=== PATIENT | male | born 1955 | race Caucasian/White ===

== ENCOUNTER 2022-06-27 05:29 | Day surgery (SDC) | payer MEDICARE, OTHER ==
[2022-06-27] VITALS (16 sets, daily range): BP systolic 128–151; BP diastolic 84–97
[~2022-06-27] VITALS: Ht 181.6 cm; Wt 105.7 kg
[~2022-06-27 05:29] MED LIST: ATOR20TA66 PO; BACL20TA PO; CLON0.1T2 PO; DULO60CA65 PO; IRBE300T18 PO; LORA-269 PO; METF-1203 PO; MIRT-87 PO; PRAM0.129 PO; PREG100C55 PO; ringers solution, lacted 1,000 ML IV SCH
[2022-06-27] MEDS ORDERED: oxymetazoline 15 ML nasal spray NS PRN (05:30)
[2022-06-27] MEDS ORDERED: famotidine 20mg tablet PO ONE (05:30)
[2022-06-27] MEDS ORDERED: diazepam 5mg tablet PO ONE (05:30)
[2022-06-27] MEDS ORDERED: mupirocin 2% ointment 22GM ONE (06:47)
[2022-06-27] MEDS ORDERED: cocaine 4% topical solution 4ml bottle ONE (06:47)
[2022-06-27] MEDS ORDERED: oxymetazoline 15 ML nasal spray NS ONE (06:47)
[2022-06-27] MEDS ORDERED: LIDOCAINE 1%/EPI 1:100,000 inj. 10 ML multi-dose vial ONE (06:47)
[2022-06-27] MEDS ORDERED: fentaNYL/PF 50MCG/1 ML 2ML syringe ONE (07:06)
[2022-06-27] MEDS ORDERED: midazolam 1 mg/ML 2ml injection ONE (07:07)
[2022-06-27] MEDS ORDERED: LIDOcaine 2% (20mg/ml) 5ml vial ONE (07:09)
[2022-06-27] MEDS ORDERED: hydrALAZINE 20mg/ml inj. IV PRN (07:15)
[2022-06-27] MEDS ORDERED: ringers solution, lacted 1,000 ML IV SCH (07:15)
[2022-06-27] MEDS ORDERED: fentaNYL/PF 50MCG/1 ML 2ML syringe IV PRN (07:15)
[2022-06-27] MEDS ORDERED: morphine 2 MG/ML inj. syringe IV PRN (07:15)
[2022-06-27] MEDS ORDERED: morphine 4 MG/ML inj SYRINge IV PRN (07:15)
[2022-06-27] MEDS ORDERED: ondansetron/PF 4mg/2ml inj IV PRN (07:15)
[2022-06-27] MEDS ORDERED: labetalol 20mg/4ml (5mg/ml) syringe IV PRN (07:15)
[2022-06-27] MEDS ORDERED: ondansetron/PF 4mg/2ml inj ONE (08:25)
[2022-06-27] MEDS ORDERED: rocuronium 10mg/ml inj IV ONE (08:25)
[2022-06-27] MEDS ORDERED: labetalol 20mg/4ml (5mg/ml) syringe IV ONE ×2 (08:25→08:35)
[2022-06-27] MEDS ORDERED: propofol inj 20 ML IV ONE (08:25)
[2022-06-27] MEDS ORDERED: neostigmine methylsulfate 1 MG/ML 10ml vial ONE (08:44)
[2022-06-27] MEDS ORDERED: glycopyrrolate 0.2mg/ml inj ONE (08:44)
[2022-06-27] MEDS: fentaNYL/PF 50MCG/1 ML 2ML syringe IV PRN ×2 (10:27→11:13)
--- NOTE | 2022-06-27 10:35 | NUR ---
COTTONOIDS REMOVED FROM NARES ORDERED. PT TOLERATED WILL. GAUZE WITH NASAL DRSG JAY NOW IN PLACE. SCANT DRAINAGE NOTED TO GAUZE. PT DENIES HAVING AN DRAINAGE TO BACK OF THROAT. WILL CONTINUE TO ASSESS.
[2022-06-27] MEDS ORDERED: salt irrigation nasal spray 45 ML SPRAY NS PRN (11:10)
--- NOTE | 2022-06-27 11:59 | NUR ---
Received from OR via [facility], accompanied by Anesthesiologist DR GRACIA and report given by Anesthesiolgist. PT IS GROGGY BUT RESPONDS EASILY TO VERBAL STIMULI AND ANSWERS QUESTIONS APPROPRIATELY, ARCHER. PT PLACED ON BEDSIDE MONITOR, VSS. PT RECEIVING 8L O2 TO MASK ANS TOLERATING WELL WITH O2 SAT >96%. WILL TITRATE DOWN TOLERATES. PT HAS 20G PIV TO RT HAND WITH LR INFUSING ORDERED. PT HAS DRSG TO BRIDGE OF NOSE THAT IS CDI. PT HAS COTTONOIDS TO BILAT NOSTRILS THAT WILL BE REMOVED ORDERED. PT DENIES PAIN AT THIS TIME. WILL CONTINUE TO ASSESS.
--- NOTE | 2022-06-27 12:54 | NUR ---
ALL DISCHARGE CRITERIA HAS BEEN MET. VSS, PAIN AT A TOLERABLE LEVEL, VOIDING AND ABLE TO SAFELY AMBULATE AND TRANSFER SELF. IV TAKEN OUT WITHOUT ANY COMPLICATIONS. ALL DISCHARGE INSTRUCTIONS COVERED WITH PATIENT AND ALL QUESTIONS ANSWERED. PATIENT TAKEN OUT VIA WHEELCHAIR TO PERSONAL VEHICLE WHERE DROVE PATIENT HOME.
== END 2022-06-27 12:32 | disposition home or self-care (01) ==
LOC: PAS 05:29
PROVIDERS: ATTEND Otolaryngology
DX: J34.3 Hypertrophy of nasal turbinates (principal); J34.2 Deviated nasal septum; J34.89 Other specified disorders of nose and nasal sinuses; J98.8 Other specified respiratory disorders; Z79.899 Other long term (current) drug therapy; Z98.890 Other specified postprocedural states; Z79.01 Long term (current) use of anticoagulants; Z20.822 Contact with and (suspected) exposure to COVID-19
CPT/HCPCS: 30140; 30420; 82948; 87635; 87811; 93005; A6402; C9250; C9803; J2250; J2270; J2405; J2704; J2710; J3010; J3490; J7030; J7120; Z7506; Z7508; Z7512; A4618; A6449; A7000

== ENCOUNTER 2024-10-31 07:16 | Day surgery (SDC) | payer OTHER, MEDICARE ==
[2024-10-27 15:16] LABS: BILIRUBIN,URINE NEGATIVE (Neg); CLARITY,URINE CLEAR (Clear); COLOR,URINE YELLOW (Yellow); GLUCOSE, URINE NEGATIVE (Neg); KETONES,URINE NEGATIVE (Neg); LEUKOCYTE ESTERASE ,URINE NEGATIVE (Neg); NITRITES, URINE NEGATIVE (Neg); OCCULT BLOOD,URINE NEGATIVE (Neg); PROTEIN,URINE TRACE mg/dl (Neg); UROBILINOGEN,URINE 0.2 E.U/dL (0.2-1.0)
[2024-10-27 15:18] LABS: UA COLLECTION TYPE CLN CATCH MIDSTREAM
[2024-10-27 15:18] LABS: BASOPHILS % (AUTO) 0.2 % (0-1); EOSINOPHILS # (AUTO) 0.1 X10'3 (0-0.9); EOSINOPHILS % (AUTO) 1.5 % (0-6); LYMPHOCYTES # (AUTO) 1.4 X10'3 (1.1-4.8); LYMPHOCYTES % (AUTO) 19.6 % (21-51); MEAN CORPUSCULAR HEMOGLOBIN 33.9 PG (27.0-31.0); MEAN CORPUSCULAR HGB CONC 34.1 g/dL (33.0-36.5); MEAN CORPUSCULAR VOLUME 99.5 FL (78-98); MEAN PLATELET VOLUME 7.9 FL (7.4-10.4); MONOCYTES # (AUTO) 0.5 X10'3 (0-0.9); MONOCYTES % (AUTO) 6.5 % (2-12); NEUTROPHILS # (AUTO) 5.1 X10'3 (1.8-7.7); NEUTROPHILS % (AUTO) 72.2 % (42-75); PRE OP HEMATOCRIT 40.5 % (42.0-52.0); PRE OP HEMOGLOBIN 13.8 g/dL (14.0-17.9); PRE OP PLATELET COUNT 203 X10'3 (140-440); PRE OP WHITE BLOOD COUNT 7.1 10'3 (4.8-10.8); RED BLOOD COUNT 4.07 X10'6 (4.70-6.10); RED CELL DISTRIBUTION WIDTH 13.1 % (11.5-14.5)
[2024-10-27 15:30] LABS: ALBUMIN 3.5 G/DL (3.4-5.0); ALBUMIN/GLOBULIN RATIO 0.9 (1.1-1.5); ALKALINE PHOSPHATASE 90 IU/L (46-116); BLOOD UREA NITROGEN 10 MG/DL (7-18); BUN/CREATININE RATIO 11.6 (10.0-20.0); CHLORIDE 106 MMOL/L (99-107); CREATININE 0.86 MG/DL (0.60-1.10); PRE OP ANION GAP 7 (8-16); PRE OP AST 40 U/L (10-37); PRE OP BILIRUB, TOTAL 0.4 MG/DL (0.0-1.0); PRE OP GLUCOSE 88 MG/DL (70-104); PRE OP POTASSIUM 4.5 MMOL/L (3.4-5.1); PRE OP SODIUM 141 MMOL/L (135-145); TOTAL PROTEIN 7.6 G/DL (6.4-8.2); eGFR 89 ML/MIN
[2024-10-27 15:33] LABS: PRE OP ALT 104 U/L (30-65)
[2024-10-27 15:36] LABS: BACTERIA,URINE FEW /HPF (Neg); SQUAMOUS EPITHELIAL CELL,UR FEW /LPF (FEW); TRANSITIONAL EPI CELLS,URINE FEW /HPF; WBC,URINE 0-4 /HPF (0-4)
[~2024-10-31] VITALS: Ht 182.9 cm; Wt 103.4 kg
[2024-10-31] VITALS (14 sets, daily range): BP systolic 125–148; BP diastolic 70–112; PULSE 81–98; RESP 11–25; TEMP 96.3; O2SAT 89–98
[~2024-10-31 07:16] MED LIST changes: +BUPIVAcaine 2.5mg/ml inj 50ml vial (contains preservative) ONE; +DICL75TA6 PO; -DULO60CA65 PO; -IRBE300T18 PO; +IRBE300T26 PO; -LORA-269 PO; +MAGN400T39 PO; -METF-1203 PO; +METF-438 PO; -MIRT-87 PO; +MIRT45TA83 PO; -PREG100C55 PO; +PREG100C56 PO; +VENL50TA4 PO; +bacitracin 15gm ointment TP ONE
[2024-10-31] MEDS: ceFAZolin 2gm in dextrose, iso 50 ML IV ONE (07:53)
[2024-10-31] MEDS: famotidine 20mg tablet PO ONE (08:10)
[2024-10-31] MEDS ORDERED: ondansetron/PF 4mg/2ml inj IV PRN (09:45)
[2024-10-31] MEDS ORDERED: morphine 4 MG/ML inj SYRINge IV PRN (09:45)
[2024-10-31] MEDS ORDERED: labetalol 20mg/4ml (5mg/ml) syringe IV PRN (09:45)
[2024-10-31] MEDS ORDERED: morphine 2 MG/ML inj. syringe IV PRN (09:45)
[2024-10-31] MEDS ORDERED: ringers solution, lacted 1,000 ML IV SCH (09:45)
[2024-10-31] MEDS ORDERED: proCHLORperazine 10 MG/2 ml inj IV PRN (09:45)
[2024-10-31] MEDS ORDERED: hydrALAZINE 20mg/ml inj. IV PRN (09:45)
[2024-10-31] MEDS ORDERED: HYDROmorphone/PF 0.2 MG/ML SYRINGE IV PRN ×2 (09:45)
[2024-10-31] MEDS ORDERED: meperidine/PF 25mg/ml syringe IV PRN (09:45)
[2024-10-31] MEDS ORDERED: cloNIDine hcl/PF 100mcg/ml inj ONE (09:46)
[2024-10-31] MEDS ORDERED: sevoflurane 250ml liquid IH ONE (10:03)
[2024-10-31] MEDS ORDERED: fentaNYL/PF 50MCG/1 ML 2ML syringe ONE (10:12)
[2024-10-31] MEDS ORDERED: midazolam 1 mg/ML 2ml injection ONE (10:24)
[2024-10-31] MEDS ORDERED: dexamethasone sod phosphate 4mg/ml inj. ONE ×2 (10:31→10:45)
[2024-10-31] MEDS ORDERED: propofol inj 20 ML IV ONE (10:31)
[2024-10-31] MEDS ORDERED: ROPIVAcaine 0.5% (5mg/ml) 30ml vial ONE (10:32)
[2024-10-31] MEDS ORDERED: LIDOcaine 2% (20mg/ml) 5ml vial ONE (10:32)
[2024-10-31] MEDS ORDERED: 0.9 % SODIUM CHLORIDE 10 ML VIAL ONE ×3 (10:32→11:53)
[2024-10-31] MEDS ORDERED: ondansetron/PF 4mg/2ml inj ONE (10:45)
[2024-10-31] MEDS ORDERED: ePHEDrine 50MG/ML INJ. ONE ×2 (10:54→11:53)
[2024-10-31] MEDS ORDERED: morphine 10mg/ml inj. ONE (11:53)
[2024-10-31] MEDS ORDERED: diphenhydrAMINE 25mg capsule PO PRN ×2 (12:25)
== END 2024-10-31 14:24 | disposition home or self-care (01) ==
LOC: PAS 07:16
PROVIDERS: ATTEND Podiatrist Foot & Ankle Surgery
DX: M21.42 Flat foot [pes planus] (acquired), left foot (principal); M25.372 Other instability, left ankle; M19.071 Primary osteoarthritis, right ankle and foot; M21.6X1 Other acquired deformities of right foot; M17.11 Unilateral primary osteoarthritis, right knee; G47.33 Obstructive sleep apnea (adult) (pediatric); I10 Essential (primary) hypertension; Z79.899 Other long term (current) drug therapy; E78.5 Hyperlipidemia, unspecified; Z98.890 Other specified postprocedural states; G47.30 Sleep apnea, unspecified; E11.42 Type 2 diabetes mellitus with diabetic polyneuropathy; F41.9 Anxiety disorder, unspecified; F32.A Depression, unspecified
CPT/HCPCS: 27687; 27695; 28238; 28300; 28304; 36415; 73620; 80053; 81001; 82948; 85025; A6223; C1713; J0690; J0735; J1100; J2003; J2250; J2274; J2405; J2704; J2795; J3010; J3490; J7030; J7120; Z7506; Z7508; Z7512; 76000; A4618; A6253; A6449; A7000